=== PATIENT | male | born 1990 | race Caucasian/White ===

== ENCOUNTER → 2024-12-28 | Outpatient (CLI) | payer OTHER ==
--- NOTE | 2024-12-28 11:24 | MR ---
EXAMINATION TYPE: MR shoulder RT wo con DATE OF EXAM: 12/28/2024 11:02 AM COMPARISON: None. 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 FINDINGS: Rotator Cuff: Intact infraspinatus tendon. Some heterogeneity but intact subscapularis tendon. More p rominent increased signal in the distal supraspinatus tendon especially anterior fibers. Rotator cuff muscle bulk preserved. Acromioclavicular Joint: Type II downsloping acromion. Mild capsular hypertrophy. No significant spur ring. Glenohumeral Joint: Small sized joint effusion. No significant spurring. Labrum: The labrum appears grossly intact given limitation of non-arthrogram study. Biceps Tendon: The long head of biceps is in normal location within bicipital groove. Bone marrow signal: No focal abnormal marrow signal is appreciated. Other: No additional significant abnormality is appreciated. IMPRESSION: There is tendinosis and partial tearing of the supraspinatus tendon. No labral tear is seen. Type II downsloping acromion noted. [facility], , 12/28/2024 11:21 AM
== END | disposition home or self-care (01) ==
LOC: RADMRIMAIN 10:08
PROVIDERS: ATTEND Orthopaedic Surgery
DX: M75.111 Incomplete rotator cuff tear or rupture of right shoulder, not specified as traumatic (principal); M67.813 Other specified disorders of tendon, right shoulder

== ENCOUNTER → 2025-04-05 | Outpatient (CLI) | payer OTHER ==
[2025-04-05 18:56] LABS: Basophils # (A) 0.07 X 10*3/uL (0.00-0.10); Basophils % (A) 0.8 %; Eosinophils # (A) 0.39 X 10*3/uL (0.04-0.35); Eosinophils % (A) 4.7 %; HCT 42.2 % (39.6-50.0); HGB 14.5 g/dL (13.0-17.0); Lymphocytes # (A) 2.34 X 10*3/uL (0.90-5.00); Lymphocytes % (A) 28.3 %; MCH 33.7 pg (27.0-32.0); MCHC 34.4 g/dL (32.0-37.0); MCV 98.1 FL (80.0-97.0); Mean Platelet Volume 11.4 FL (9.5-12.2); Monocytes # (A) 0.66 X 10*3/uL (0.20-1.00); NRBC Per 100 WBC 0 X 10*3/uL (0.00-0.01); Neutrophils # (A) 4.74 X 10*3/uL (1.80-7.70); Neutrophils % (A) 57.4 %; Platelet Count 274 X 10*3/uL (140-440); RDW 12.6 % (11.5-14.5); WBC 8.27 X 10*3/uL (4.50-10.00)
[2025-04-05 20:01] LABS: Anion Gap 13.4 mmol/L (4.00-12.00); Carbon Dioxide 22.6 mmol/L (21.6-31.8); Potassium 3.8 mmol/L (3.5-5.5)
== END | disposition home or self-care (01) ==
LOC: LABPAT 14:50
PROVIDERS: ATTEND Orthopaedic Surgery
DX: Z01.812 Encounter for preprocedural laboratory examination (principal); M75.41 Impingement syndrome of right shoulder
CPT/HCPCS: 80051; 85025

== ENCOUNTER 2025-04-17 06:01 | Day surgery (SDC) | payer OTHER ==
[2025-04-12 15:20] VITALS: BMI 39.7
--- NOTE | 2025-04-16 14:47 | HP ---
HISTORY AND PHYSICAL DATE OF SURGERY: 04/17/2025. HISTORY OF PRESENT ILLNESS: Royce Magallon is a 34-year-old gentleman, seen with progressive right shoulder pain. We discussed options. He elected to proceed with right shoulder arthroscopy. Consent was obtained. PAST MEDICAL HISTORY: Hypertension. SURGICAL HISTORY: Noncontributory. DAILY MEDICATIONS: Lisinopril. ALLERGIES: None. SOCIAL HISTORY: He smokes cigarettes. PHYSICAL EVALUATION OF THE RIGHT SHOULDER: Flexion is 120 degrees. Abduction is 90 degrees. External rotation is 40 degrees with pain and weakness. Tenderness along the anterolateral acromion rotator cuff insertion. Impingement is positive at 90 degrees. Distal neurovascular exam is intact. DIAGNOSTIC DATA: Radiographs of the right shoulder, type 2 acromion. MRI of the right shoulder, partial rotator cuff tear, type 2 acromion. IMPRESSION: Right shoulder impingement with rotator cuff tear. PLAN: Right shoulder arthroscopy with subacromial decompression, arthroscopic rotator cuff repair and debridement. MMODL / IJN: [id number] /
[2025-04-17] MEDS ORDERED: MIDAZOLAM 2 MG/2 ML VIAL IV PRN (07:00)
[2025-04-17] MEDS ORDERED: HYDROmorphone 0.5 MG/0.5 ML SYRINGE IVP PRN (07:00)
[2025-04-17] MEDS: IV FLUID CONTINUATION 1,000 ML IV ONE (08:30)
[2025-04-17] MEDS: ONDANSETRON 4 MG/2 ML VIAL IVP ONE (08:37)
[2025-04-17] MEDS: DEXAMETHASONE SOD PHOSPHATE 4 MG/ML 1 ML VIAL IV ONE (08:37)
[2025-04-17] MEDS: SCOPOLAMINE 1 MG/72 HR PATCH TRANSDERM ONE (08:38)
[2025-04-17] MEDS: LACTATED RINGERS 1,000 ML IV SCH (08:40)
[2025-04-17] MEDS: fentaNYL (PF) 50 MCG/ML 2 ML AMP IVP ONE ×2 (09:08)
[2025-04-17] MEDS: MIDAZOLAM 2 MG/2 ML VIAL IV ONE (09:08)
[2025-04-17] MEDS ORDERED: SUCCINYLCHOLINE CHLORIDE 200 MG/10 ML VIAL IV ONE (09:51)
[2025-04-17] MEDS ORDERED: PROPOFOL 10 MG/ML 20 ML VIAL IV ONE (09:51)
[2025-04-17] MEDS ORDERED: HYDROmorphone (PF) 1 MG/ML ONE (09:51)
[2025-04-17] MEDS ORDERED: MIDAZOLAM 2 MG/2 ML VIAL ONE (09:51)
[2025-04-17] MEDS ORDERED: ROPIVACAINE 5 MG/ML 30 ML VIAL ONE (09:51)
[2025-04-17] MEDS ORDERED: DEXAMETHASONE SOD PHOSPHATE 4 MG/ML 1 ML VIAL ONE (09:51)
[2025-04-17] MEDS ORDERED: SODIUM CHLORIDE 0.9% (PF) 10 ML VIAL ONE (09:51)
[2025-04-17] MEDS ORDERED: LIDOCAINE 4% LTA KIT (4 ML) TOPICAL ONE (09:51)
[2025-04-17] MEDS ORDERED: fentaNYL (PF) 50 MCG/ML 2 ML AMP ONE (09:51)
[2025-04-17] MEDS ORDERED: LIDOCAINE 1% INJ 10MG/ML (20 ML MDV) ONE (09:51)
[2025-04-17] MEDS: ceFAZolin 3 GM in SODIUM CHLORIDE 0.9% 100 ML IVPB PRN (09:56)
--- NOTE | 2025-04-17 10:13 | P.ANPRN ---
Procedure Note - Anesthesia - Nerve Block Performed Right Interscalene Single Time Out Performed: Yes ([id number]) Date of Procedure: 04/17/25 Procedure Start Time: :08 Procedure Stop Time: :13 Location of Patient: PreOp Indication: Acute Post-Operative Pain, Requested by Surgeon Specifically requested for management of pain by DrAnival: Jama Stewart Sedation Type: Sedate with meaningful contact maintained Preparation: Sterile Prep Position: Supine Catheter: None Needle Types: Pajunk Needle Gauge: 21 Ultrasound used to visualize needle placement: Yes Ultrasound used to observe medication spread: Yes Injectate: 0.5% Ropivacaine (see comment for volume) (30cc+decadron 4mg) Blood Aspirated: No Pain Paresthesia on Injection Noted: No Resistance on Injection: Normal Image Stored and Saved: Yes Events: Uneventful and Well Tolerated
--- NOTE | 2025-04-17 11:44 | P.OP ---
Date of Procedure: 04/17/25 Preoperative Diagnosis: Right shoulder impingement Postoperative Diagnosis: 1. Right shoulder rotator cuff tear 2. Right shoulder impingement Procedure(s) Performed: 1. Right shoulder arthroscopic rotator cuff repair 2. Right shoulder arthroscopic subacromial decompression Implants: 4Arthrex 4.75 swivel lock anchors Anesthesia: GETA, regional (Interscalene block) Surgeon: Jama Stewart Truck Mechanic Apprentice #1: Carroll Messer Estimated Blood Loss (ml): 10 Pathology: none sent Condition: stable Disposition: PACU Indications for Procedure: 34-year-old gentleman seen with progressive right shoulder pain. After treatment options were discussed with him, he elected to proceed with arthroscopy. Operative Findings: See description of procedure Description of Procedure: Patient underwent an interscalene block by department of anesthesia. The patient was then taken to the operative suite. The patient underwent a general anesthetic by the department of anesthesia. The patient was placed into a lateral position and secured. There was appropriate padding of the bony prominence. Right shoulder was then prepped and draped in normal sterile orthopedic fashion. We placed the extremity in 10 pounds of longitudinal traction. A posterior incision was now made for a posterior working portal site. The trocar and cannula were inserted into the glenohumeral joint. Arthroscopy was initiated. Spinal needle was now inserted anteriorly, to ascertain the anterior working portal site. An incision was now made in that area, a trocar was inserted followed by a probe. There was no chondromalacia present. The labrum was probed and was found to be stable. The long head biceps tendon was probed and was found to be stable. There appeared to be a full-thickness rotator cuff tendon tear visualized from the glenohumeral joint. At this point instruments were removed from the glenohumeral joint. Utilizing the posterior working portal site, the trocar and cannula were ins erted into the subacromial space. Arthroscopy initiated. I made an incision 2 fingerbreadths lateral to the acromion. I introduced my trocar followed by my ArthroCare ablator. I now began ablating thick subacromial bursal tissue, which exposed the undersurface of the anterior acromion. There was diminished subacromial space. There was a very prominent anterior acromion. A motorized bur was introduced and a subacromial decompression was performed. I also excised some osteophytes off the inferior aspect of the distal clavicle. The AC joint was visualized and noted to be mildly arthritic.. I turned my attention to the rotator cuff. There was a 2.5 cm rotator cuff tear. I debrided the margins getting down to stable tendon tissue. The defect/tear measured about 3 cm and was freely mobile over the footprint. I introduced my motorized bur and abraded the footprint area, getting some petechial bleeding. I now made an accessory portal site off the lateral aspect of the acromion. I punched to holes medial for medial row fixation with the assistance of Zaki MONACO carefully tapping the punch with a mallet as I held the punch and the camera. I now introduced both anchors into the pre-punched holes and Zaki MONACO tapped them with the mallet as I held anchors and the camera. Zaki MONACO now screwed the anchors in place a while I held the anchor guide and camera. All 8 limbs of suture were now passed through good bites of rotator cuff tendon. I now punched 2 holes for lateral row fixation again I held the punch and camera while Zaki MONACO used a mallet to tap in the punch. We now passed sutures through both anchors and individually I introduced the anchors into the pre-punch holes I held the anchor guide in position with one hand holding the camera with the other hand while Zaki MONACO tensioned the sutures and screwed in the anchors one at a time. All residual suture limbs were now clipped. We had good compression of the tendon along the entire footprint. Instruments now removed from the portal sites. All portal sites were approximated with nylon suture. Sterile dressings were applied followed by a shoulder immobilizer. Carroll MONACO assisted in this complex case. The patient was awakened, transferred to a bed, and taken to recovery in stable condition.
[2025-04-17 11:45] VITALS: TEMP 97.3
[2025-04-17 13:12] VITALS: BP 112/70; PULSE 81; RESP 18
== END 2025-04-17 13:33 | disposition home or self-care (01) ==
LOC: OR 06:01
PROVIDERS: ATTEND Orthopaedic Surgery
DX: M75.101 Unspecified rotator cuff tear or rupture of right shoulder, not specified as traumatic (principal); M75.41 Impingement syndrome of right shoulder; I10 Essential (primary) hypertension; G89.18 Other acute postprocedural pain; F17.210 Nicotine dependence, cigarettes, uncomplicated; Z79.899 Other long term (current) drug therapy
CPT/HCPCS: 64415; 29824; 29826; 29827; C1713; J2250; J0330; J1100; J0690; J2405; J2003; J3010; J1171; J2795; J2704